=== PATIENT | male | born 1995 | race Caucasian/White ===

== ENCOUNTER 2020-03-16 17:43 | Emergency (ER) | payer BC ==
[~2020-03-16] VITALS: Ht 182.9 cm; Wt 115.7 kg
[2020-03-16 21:06] VITALS: BP 155/72
[2020-03-16 21:15] VITALS: BP 155/72
[2020-03-16 21:16] VITALS: BP 155/72
[2020-03-16 22:00] LABS: APPEARANCE,URINE CLOUDY (CLEAR); UA COLOR BROWN (YELLOW)
[2020-03-16 22:01] LABS: BILIRUBIN,URINE MODERATE MG/DL (NEGATIVE)
[2020-03-16 22:02] LABS: UROBILINOGEN,URINE 0.2 (NEGATIVE)
[2020-03-16 22:09] LABS: EOSINOPHIL % 0.1 % (0.0-5.0); LYMPHOCYTES # 0.82 10^3/uL1 (1.0-4.8); MEAN CORP HGB 28.2 pg (26-34); MONOCYTES # 0.6 10^3/uL (0.3-0.8); MONOCYTES % 4.6 % (5.0-12.0); NEUTROPHIL # 12.3 10^3/uL (1.8-7.7); NEUTROPHILS % 89.2 % (41.0-85.0); PLATELET COUNT 315 10^3/uL (150-400); RED CELL DISTRIBUTION WIDTH 12.9 % (11.5-14.5)
--- NOTE | 2020-03-16 22:21 | DIREP ---
PROCEDURE:CT ABDOMEN/PELVIS W/O CONTRAST COMPARISON:None. INDICATIONS:FLANK PAIN POSSIBLE STONE TECHNIQUE:Axial images were created through the abdomen and pelvis without intravenous contrast material. No oral contrast was administered. Sagittal and coronal reconstructions were performed from source images. FINDINGS: LUNG BASES:Normal. No visible pulmonary or pleural disease. LIVER:Normal. No significant liver lesions are identified. BILIARY:Normal. No visible dilatation or calcification. PANCREAS:Normal. No lesion, fluid collection, ductal dilatation, or atrophy. SPLEEN:Normal. No enlargement or focal lesion. ADRENALS:Normal. No mass or enlargement. URINARY TRACT:3.5 mm stone distal left ureter just before the UVJ. Minimal edema in and around the left kidney and left ureter. Minimal enlargement of the left ureter compared to the right. 3 mm stone mid to lower right kidney. AORTA/VASCULAR:Normal. No aneurysm. RETROPERITONEUM:Normal. No mass or adenopathy. BOWEL/MESENTERY:Normal. There is no intestinal obstruction, free fluid, free air or mesenteric inflammatory changes. ABDOMINAL WALL:Normal. No mass or hernia. PELVIC ORGANS:Normal. No visible mass. Pelvic organs appropriate for patient age. BONES:Normal for age. No bony lesion or acute fracture. OTHER:Negative. CONCLUSION: 1. 3.5 mm stone distal left ureter with mild obstructive features. 2. Small stone right kidney. Dictated by: Phill Archuleta M.D. on 03/16/2020 at 10:17 PM
[2020-03-16 22:34] LABS: CALCIUM 9.3 mg/dL (8.4-10.5); CARBON DIOXIDE 23.6 mmol/L (20.0-32)
--- NOTE | 2020-03-16 22:40 | NUR ---
DR Dr. Chen in room with pt at this time
[2020-03-16] MEDS ORDERED: FLOMAX PO STA (22:42)
[2020-03-16] MEDS ORDERED: TORADOL ONE (22:42)
[2020-03-16] MEDS ORDERED: TORADOL IV STA (22:42)
[2020-03-16] MEDS ORDERED: FLOMAX ONE (22:42)
--- NOTE | 2020-03-16 22:43 | ER.PDOC ---
General Chief Complaint: Abdomen Pain Stated Complaint: ABD PAIN,VOMITTING,SWEATING,MALE Time seen by MD: 22:36 Source: patient Exam Limitations: no limitations History of Present Illness Initial Comments patient c/o sudden onset left flank pain, waxing and waning; + history of previous kidney stone Allergies: Coded Allergies: No Known Allergies (Unverified , 03/17/20) Vital Signs First Vital Signs Date Time Temp Pulse Resp B/P (MAP) Pulse Ox O2 Delivery O2 Flow Rate FiO2 03/16/20 21:06 98.3 99 18 100 03/16/20 21:16 155/72 (99) Room Air Last Vital Signs Date Time Temp Pulse Resp B/P (MAP) Pulse Ox O2 Delivery O2 Flow Rate FiO2 03/17/20 00:21 84 18 127/73 (91) 95 Room Air 03/16/20 21:16 98.3 Past Medical History Surgical History: no surgical history Social History Alcohol Use: occassionally Drug Use: none Physical Exam General Appearance: No Apparent Distress, WD/WN HEENT: PERRL/EOMI, Normal ENT Inspection Neck: Non-Tender, Full Range of Motion, Supple Respiratory: lungs clear, normal breath sounds, no respiratory distress, no accessory muscle use Cardiovascular: Regular Rate, Rhythm, No Murmur Gastrointestinal: Normal Bowel Sounds, No Organomegaly, Non Tender Back: CVA Tenderness (L) Extremities: Normal Range of Motion, Non-Tender Neurologic/Psychiatric: Alert, Normal Mood/Affect, Oriented x 3 Skin: Warm/Dry Results/Orders Results/Orders Orders - RENZO SHEPHERD DO Saline Lock (03/16/20 22:42) Ketorolac Tromethamine (Toradol) (03/16/20 22:42) Tamsulosin Hcl (Flomax) (03/16/20 22:42) Ketorolac Tromethamine (Toradol) (03/16/20 22:42) Tamsulosin Hcl (Flomax) (03/16/20 22:42) Vital Signs Date Time Temp Pulse Resp B/P (MAP) Pulse Ox O2 Delivery O2 Flow Rate FiO2 03/17/20 00:21 84 18 127/73 (91) 95 Room Air 03/16/20 21:16 98.3 99 18 155/72 (99) 100 Room Air 03/16/20 21:15 98.3 99 18 03/16/20 21:06 98.3 99 18 100 Administered Medications Medications (Trade) Dose Ordered Sig/Jamar Route PRN Reason Start Time Stop Time Status Last Admin Dose Admin Ketorolac Tromethamine (Toradol) 30 mg STAT STAT IV 03/16/20 22:42 03/17/20 00:37 DC 03/16/20 23:04 30 MG Tamsulosin HCl (Flomax) 0.4 mg STAT STAT PO 03/16/20 22:42 03/17/20 00:37 DC 03/16/20 22:50 0.4 MG Laboratory Tests Test 03/16/20 20:25 03/16/20 21:55 03/16/20 22:19 Urine Collection Type CCMS Urine Color BROWN (YELLOW) H Urine Appearance CLOUDY (CLEAR) H Urine Bilirubin MODERATE MG/DL (NEGATIVE) Urine Ketones 15 mg/dL (NEGATIVE) H Urine Specific [place] >=1.030 (1.005-1.035) Urine pH 5.5 (5.0-6.0) Urine Protein 100 mg/dL (NEGATIVE) H Urine Urobilinogen 0.2 (NEGATIVE) Urine Nitrate NEGATIVE (NEGATAIVE) Urine Leukocyte Esterase NEGATIVE (NEGATIVE) Urine Blood LARGE (NEGATIVE) Urine RBC TNTC RBC/HPF (NONE SEEN) H Urine WBC 0-2 WBC/HPF (0-2) Urine Squamous Epithelial Cells FEW #/HPF (FEW) Urine Bacteria FEW (NONE SEEN) H Urine Fine Granular Casts 0-1 Urine Other MUCUS #/HPF Urine Glucose NORMAL (NEGATIVE) White Blood Count 13.8 10^3/uL (4.5-11.0) H Red Blood Count 5.50 10^6/uL (4.50-5.90) Hemoglobin 15.5 g/dL (13.9-16.3) Hematocrit 45.7 % (37.0-53.0) Mean Corpuscular Volume 83.1 fL (78-100) Mean Corpuscular Hemoglobin 28.2 pg (26-34) Mean Corpuscular Hemoglobin Concent 33.9 g/dL (33-36.5) Red Cell Distribution Width 12.9 % (11.5-14.5) Platelet Count 315 10^3/uL (150-400) Mean Platelet Volume 9.9 fL (7.8-11.0) Neutrophils (%) (Auto) 89.2 % (41.0-85.0) H Lymphocytes (%) (Auto) 6.0 % (24.0-44.0) *L Monocytes (%) (Auto) 4.6 % (5.0-12.0) L Neutrophils # (Auto) 12.3 10^3/uL (1.8-7.7) H Lymphocytes # (Auto) 0.82 10^3/uL1 (1.0-4.8) L Monocytes # (Auto) 0.6 10^3/uL (0.3-0.8) Absolute Immature Granulocyte (auto 0.02 10^3 u/L (0-2) Absolute Eosinophils (auto) 0.0 10^3/uL (0.0-0.2) Immature Granulocytes % 0.10 % (0.00-0.50) Eosinophils % 0.1 % (0.0-5.0) Basophils % 0.0 % (0.0-0.2) Basophils # 0.0 10^3/uL (0.0-0.1) Sodium Level 139 mmol/L (132-145) Potassium Level 4.0 mmol/L (3.6-5.2) Chloride Level 104.0 mmol/L (96-109) Carbon Dioxide Level 23.6 mmol/L (20.0-32) Anion Gap 15.4 Blood Urea Nitrogen 16 mg/dL (7-18) Creatinine 1.46 mg/dL (0.59-1.40) H Estimated GFR () 72.4 (>/=60) Est GFR (CKD-EPI)(Non-Afr Bangladeshi) 59.8 (>/=60) BUN/Creatinine Ratio 10.0 Glucose Level 111 mg/dL (70-110) H Calcium Level 9.3 mg/dL (8.4-10.5) Total Bilirubin 0.7 mg/dL (0.2-1.0) Aspartate Amino Transferase (AST) 23 U/L (0-35) Alanine Aminotransferase (ALT) 40 U/L (12-78) Alkaline Phosphatase 41 U/L (50-136) L Total Protein 7.6 g/dL (6.4-8.2) Albumin 4.3 g/dL (3.4-5.0) Globulin 3.3 Albumin/Globulin Ratio 1.303 Differential Total Cells Counted 100 #CELLS Segmented Neutrophils 89 % (31-76) H Lymphocytes 10 % (25-36) L Monocytes 1 % (3-9) L Differential Comment NORMAL Platelet Estimate ADEQUATE Platelet Morphology NORMAL Progress Progress toradol relieved pain EKG/XRAY/CT/US CT Comments: 3.5 mm stone left UVJ with mild hydro ER DEPART Departure Time of Disposition: 00:05 Disposition: 01 HOME, SELF-CARE Impression: Primary Impression: Ureterolithiasis Condition: Improved Patient Instructions: Ureteral Colic Referrals: PCP,UNKNOWN (PCP) PRIMARY CARE PROVIDER Additional Instructions: TAke flomax as prescribed until stone passes. Alternate Tylenol and Motrin per package instructions every 4 hours as needed for pain. You may augment pain control with mild narcotic as prescribed. Return to ER for any emergent concerns. strain urine Duration or Time Spent with Pa: 15 min RENZO SHEPHERD DO Mar 16, 2020 22:43
--- NOTE | 2020-03-16 23:25 | NUR ---
PAIN Pt reports pain has improved significantly since arrival and since medication was given. States he can still feel slight pain, but much better than before. Rates pain at 4-5/10.
[2020-03-16 23:55] LABS: DIFFERENTIAL COMMENT NORMAL; LYMPHOCYTE 10 % (25-36); MONOCYTE 1 % (3-9); SEGMENTED NEUTROPHILS 89 % (31-76)
[2020-03-17 00:21] VITALS: BP 127/73
== END 2020-03-17 | disposition home or self-care (01) ==
LOC: ER 17:43
DX: N20.1 Calculus of ureter (principal); Z79.1 Long term (current) use of non-steroidal anti-inflammatories (NSAID); Z87.442 Personal history of urinary calculi
CPT/HCPCS: 36415; 74176; 80053; 81000; 85025; 96374; 99284; J1885